=== PATIENT | male | born 1995 | race Caucasian/White ===

== ENCOUNTER 2016-12-27 14:04 | Emergency (ER) | payer OTHER ==
[2016-12-27 14:09] VITALS: TEMP 97.7
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
[2016-12-27 15:45] VITALS: BP 122/78; PULSE 72; RESP 18; O2SAT 98
== END 2016-12-27 15:45 | disposition home or self-care (01) ==
DX: S09.90XA Unspecified injury of head, initial encounter (principal); S09.93XA Unspecified injury of face, initial encounter; Y04.0XXA Assault by unarmed brawl or fight, initial encounter

== ENCOUNTER 2017-07-05 20:47 | Emergency (ER) | payer OTHER ==
--- NOTE | 2017-07-05 23:16 | EDPHY ---
H & P Smoking Status: Never smoked Time Seen by Provider: 07/05/17 22:33 HPI/ROS: CHIEF COMPLAINT: Vomiting, cough HISTORY OF PRESENT ILLNESS: 22-year-old male presents to the emergency department by private vehicle complaining of URI symptoms since yesterday. Patient states that his roommate tested positive for strep and the patient was having a sore throat. He did not think that he had strep throat because he has had a previous tonsillectomy in since having his tonsils removed, he has not had any episodes of strep pharyngitis. Patient states that he feels general myalgias and ongoing dry cough. He states today he was coughing so hard that he noted some blood tinged sputum. He also noted some blood in his vomit. No diarrhea. No melena. No blood in his stool. He had reports no pain in his chest or symptoms of difficulty breathing. No pleuritic chest pain. No recent travel. No abdominal pain. He does not feel nauseous now. He did receive a flu shot. REVIEW OF SYSTEMS: Constitutional: Subjective chills. Eyes: No double or blurry vision. ENT: sore throat. Respiratory: Cough. no shortness of breath. Cardiac: No chest pain. Gastrointestinal: No abdominal pain, vomiting or diarrhea. Genitourinary: No dysuria. Musculoskeletal: No neck or back pain. Skin: No rashes. Neurological: No headache. (Zulay Oliver) Past Medical/Surgical History: Tonsillectomy, orthopedic surgery (Zulay Oliver) Social History: [employer] student from [place], [place] (Zulay Oliver) Physical Exam: General Appearance: Alert, no distress. Afebrile. No apparent distress. No coughing on examination. Eyes: Pupils equal and round. Extraocular motions are all intact. ENT: Mouth: Mucous membranes moist. Mild posterior pharyngeal injection noted without exudate. No uvular swelling or shift. No tonsils present. No anterior cervical lymphadenopathy palpated. Respiratory: No wheezing, rhonchi, or rales, lungs are clear to auscultation. Cardiovascular: Regular rate and rhythm. Gastrointestinal: Abdomen is soft and nontender, no masses, no rebound or guarding, bowel sounds normal. Neurological: Alert and oriented x 3, cranial nerves II through XII grossly intact Skin: Warm and dry, no rashes. Musculoskeletal: Nontender to palpate along the cervical, thoracic or lumbar spine. Neck is supple. Extremities: Full range of motion and no peripheral edema. Psychiatric: Patient is oriented X 3, there is no agitation. (Zulay Oliver) Constitutional: Initial Vital Signs Temperature (C) 36.9 C 07/05/17 20:58 Heart Rate 86 07/05/17 20:58 Respiratory Rate 20 07/05/17 20:58 Blood Pressure 128/75 H 07/05/17 20:58 O2 Sat (%) 95 07/05/17 20:58 O2 Delivery Mode Room Air Allergies/Adverse Reactions: No Known Allergies Allergy (Unverified 07/05/17 20:57) Home Medications: Medication Instructions Recorded NK [No Known Home Meds] 07/05/17 Medical Decision Making ED Course/Re-evaluation: 22-year-old male presents to the emergency department with cough, sore throat and symptoms of vomiting. Clinically I think this patient likely has influenza. I discussed the rationale for not testing for influenza or treating with Tamiflu. He has no history of asthma. He is immunocompetent. He is otherwise healthy. The patient was given option of being treated for strep pharyngitis since his roommate tested positive for this, however the patient requested to be tested for strep it this was positive would take treatment otherwise would await throat culture. The patient does not feel nauseous. He is tolerating p.o. fluids. He is comfortable being discharged home. Rapid strep screen was negative. Patient will call for the results of the throat culture in 48 hr. (Zulay Oliver) PHYSICIAN DOCUMENTATION: The patient was evaluated and managed by the Physician Station [facility]. My co- signature indicates that I have reviewed this chart and I agree with the findings and plan of care as documented. I am the secondary supervising physician. (Lida Linn) Differential Diagnosis: Including but not limited to influenza, viral upper respiratory infection, strep pharyngitis, mononucleosis, tuberculosis (Zulay Oliver) - Data Points Laboratory Results: 07/05/17 07/05/17 Unknown 22:30 Group A Strep Screen NEGATIVE (NEGATIVE) Group A Strep DNA Pending Departure - Departure Disposition: Home, Routine, Self-Care Clinical Impression: Sore throat, Vomiting Condition: Good Instructions: Pharyngitis (ED), Acute Nausea and Vomiting (ED) Additional Instructions: Clear liquids and then slowly advance diet as tolerated. Call [phone] for the results of your throat culture in 48 hr. Referrals: Meena Lancaster MD [Medical Doctor] - 2-3 days, if not improved (Primary care provider electrical contacts adjuster)
[2017-07-05 23:54] VITALS: BP 122/76; PULSE 70; RESP 16; TEMP 98.2; O2SAT 97
== END 2017-07-05 23:52 | disposition home or self-care (01) ==
DX: J02.9 Acute pharyngitis, unspecified (principal); R11.10 Vomiting, unspecified

== ENCOUNTER 2017-12-09 10:20 | Emergency (ER) | payer OTHER ==
[2017-12-09] MEDS ORDERED: ONDANSETRON 4 MG/2 ML VIAL IVP ONE (10:33)
[2017-12-09] MEDS ORDERED: NS 1,000 ML IV ONE (10:33)
[2017-12-09] MEDS ORDERED: KETOROLAC 30 MG/1 ML SDV IVP ONE (10:33)
[2017-12-09] MEDS ORDERED: LORazepam 2 MG/ML INJ IVP ONE (10:33)
--- NOTE | 2017-12-09 10:35 | EDPHY ---
H & P Stated Complaint: abdominal pain starting at 0900 this morning Time Seen by Provider: 12/09/17 10:25 HPI/ROS: CHIEF COMPLAINT: Abdominal pain HISTORY OF PRESENT ILLNESS: The patient is a 22-year-old healthy man who comes to the emergency department complaining of periumbilical abdominal pain. He states that it began at 9:00 a.m. This morning when he woke up. He tried to eat but he feels like it made his pain worse. No fevers. He is nauseous but has not vomited. No diarrhea. No history of abdominal surgery. No recent experienced anything like this before. No testicular pain. No flank pain. No discharge. REVIEW OF SYSTEMS: Constitutional: denies: chills, fever, recent illness, recent injury EENTM: denies: blurred vision, double vision, nose congestion Respiratory: denies: cough, shortness of breath Cardiac: denies: chest pain, irregular heart rate, lightheadedness, palpitations Gastrointestinal/Abdominal: See HPI Genitourinary: denies: dysuria, frequency, hematuria, pain Musculoskeletal: denies: joint pain, muscle pain Skin: denies: lesions, rash, jaundice, bruising Neurological: denies: headache, numbness, paresthesia, tingling, dizziness, weakness Hematologic/Lymphatic: denies: blood clots, easy bleeding, easy bruising Immunologic/allergic: denies: HIV/AIDS, transplant EXAM: GENERAL: Well-appearing, well-nourished and in no acute distress. HEAD: Atraumatic, normocephalic. EYES: Pupils equal round and reactive to light, extraocular movements intact, sclera anicteric, conjunctiva are normal. ENT: TMs normal, nares patent, oropharynx clear without exudates. Moist mucous membranes. NECK: Normal range of motion, supple without lymphadenopathy or JVD. LUNGS: Breath sounds clear to auscultation bilaterally and equal. No wheezes rales or rhonchi. HEART: Regular rate and rhythm without murmurs, rubs or gallops. ABDOMEN: Periumbilical and right lower quadrant tenderness, no guarding or rebound BACK: No CVA tenderness, no spinal tenderness, step-offs or deformities EXTREMITIES: Normal range of motion, no pitting or edema. No clubbing or cyanosis. NEUROLOGICAL: Cranial nerves II through XII grossly intact. Normal speech, normal gait. 5/5 strength, normal movement in all extremities, normal sensation PSYCH: Normal mood, normal affect. SKIN: Warm, dry, normal turgor, no visible rashes or lesions. Source: Patient Exam Limitations: No limitations - Medical/Surgical History Hx Asthma: No Hx Chronic Respiratory Disease: No Hx Diabetes: No Hx Cardiac Disease: No Hx Renal Disease: No Hx Cirrhosis: No Hx Alcoholism: No Hx HIV/AIDS: No Hx Splenectomy or Spleen Trauma: No Other PMH: L femur repaired fx 2011; tonsillectomy - Family History Significant Family History: No pertinent family hx - Social History Smoking Status: Never smoked Alcohol Use: None Constitutional: Initial Vital Signs Temperature (C) 36.6 C 12/09/17 10:22 Heart Rate 58 L 12/09/17 10:22 Respiratory Rate 20 12/09/17 10:22 Blood Pressure 119/84 H 12/09/17 10:22 O2 Sat (%) 95 12/09/17 10:22 O2 Delivery Mode Room Air Allergies/Adverse Reactions: No Known Allergies Allergy (Verified 12/09/17 10:22) Home Medications: Medication Instructions Recorded LORazepam [Ativan 1 mg (RX)] 1 mg PO Q6-8PRN PRN #10 tab 12/09/17 Ondansetron Odt [Zofran Odt 4 mg 4 mg PO Q4 PRN #20 tab 12/09/17 (RX)] Medical Decision Making - Diagnostics Imaging Results: Imaging Impressions Abdomen CT 12/09/17 10:33 Impression: Normal appendix. No source for periumbilical pain identified. Results called and discussed with EVELINA GONZALES, at 12/09/2017 11:39 General information for patients regarding this examination can be found at [email or web address]. If you have questions or comments about this report, please contact me at (hospital) or [phone] (cell). Imaging: Discussed imaging studies w/ lead sprinkler Radiologist ED Course/Re-evaluation: 11:50 a.m. the patient is feeling completely better after Ativan and Toradol. His abdominal exam is benign. We discussed the CT results which are reassuring. We agreed to discharge and have him return in 24-48 hours for recheck. He is happy with this plan and declines further workup or testing. 12:00 p.m. the patient while getting ready for discharge had return of his cramping and pain. We will try treating with Haldol. 1:15 p.m. the patient is feeling much better. He is eager to go home. Differential Diagnosis: Partial list of the Differential diagnosis considered include but were not limited to; constipation, appendicitis, anxiety, gastritis and although unlikely based on the history and physical exam, I also considered biliary disease, obstruction, ischemia, volvulus, kidney stone, urinary tract infection , hernia. I discussed these differential diagnoses and the plan with the patient as well as the usual and expected course. The patient understands that the diagnosis is provisional and that in medicine we are not always correct and that further workup is often warranted. Usual and customary warnings were given. All of the patient's questions were answered. The patient was instructed to return to the emergency department should the symptoms at all worsen or return, otherwise to followup with the physician as we discussed. - Data Points Laboratory Results: Laboratory Results 12/09/17 10:35 12/09/17 10:35 12/09/17 12/09/17 12/09/17 10:47 10:35 10:35 WBC 4.34 10^3/uL 10^3/uL (3.80-9.50) RBC 5.30 10^6/uL 10^6/uL (4.40-6.38) Hgb 16.3 g/dL g/dL (13.7-17.5) Hct 48.5 % % (40.0-51.0) MCV 91.5 fL fL (81.5-99.8) MCH 30.8 pg pg (27.9-34.1) MCHC 33.6 g/dL g/dL (32.4-36.7) RDW 13.1 % % (11.5-15.2) Plt Count 226 10^3/uL 10^3/uL (150-400) MPV 10.5 fL fL (8.7-11.7) Neut % (Auto) 49.6 % % (39.3-74.2) Lymph % (Auto) 41.0 % % (15.0-45.0) [place] % (Auto) 6.9 % % (4.5-13.0) Eos % (Auto) 1.6 % % (0.6-7.6) Baso % (Auto) 0.7 % % (0.3-1.7) Nucleat RBC Rel Count 0.0 % % (0.0-0.2) Absolute Neuts (auto) 2.15 10^3/uL 10^3/uL (1.70-6.50) Absolute Lymphs (auto) 1.78 10^3/uL 10^3/uL (1.00-3.00) Absolute Monos (auto) 0.30 10^3/uL 10^3/uL (0.30-0.80) Absolute Eos (auto) 0.07 10^3/uL 10^3/uL (0.03-0.40) Absolute Basos (auto) 0.03 10^3/uL 10^3/uL (0.02-0.10) Absolute Nucleated RBC 0.00 10^3/uL 10^3/uL (0-0.01) Immature Gran % 0.2 % % (0.0-1.1) Immature Gran # 0.01 10^3/uL 10^3/uL (0.00-0.10) Sodium 138 mEq/L mEq/L (135-145) Potassium 4.4 mEq/L mEq/L (3.3-5.0) Chloride 106 mEq/L mEq/L (97-110) Carbon Dioxide 24 mEq/l mEq/l (22-31) Anion Gap 8 mEq/L mEq/L (8-16) BUN 10 mg/dL mg/dL (7-23) Creatinine 0.8 mg/dL mg/dL (0.7-1.3) Estimated GFR > 60 Glucose 101 mg/dL H mg/dL (70-100) Calcium 9.7 mg/dL mg/dL (8.5-10.4) Total Bilirubin 0.9 mg/dL mg/dL (0.1-1.4) Conjugated Bilirubin 0.3 mg/dL mg/dL (0.0-0.5) Unconjugated Bilirubin 0.6 mg/dL mg/dL (0.0-1.1) AST 20 IU/L IU/L (17-59) ALT 24 IU/L IU/L (21-72) Alkaline Phosphatase 67 IU/L IU/L (38-126) Total Protein 6.8 g/dL g/dL (6.3-8.2) Albumin 4.4 g/dL g/dL (3.5-5.0) Lipase 45 IU/L IU/L (23-300) Urine Color YELLOW Urine Appearance CLEAR Urine pH 5.0 (5.0-7.5) Ur Specific [place] 1.028 (1.002-1.030) Urine Protein NEGATIVE (NEGATIVE) Urine Ketones NEGATIVE (NEGATIVE) Urine Blood NEGATIVE (NEGATIVE) Urine Nitrate NEGATIVE (NEGATIVE) Urine Bilirubin NEGATIVE (NEGATIVE) Urine Urobilinogen NEGATIVE EU EU (0.2-1.0) Ur Leukocyte Esterase NEGATIVE (NEGATIVE) Urine RBC NONE SEEN /hpf /hpf (0-3) Urine WBC 0-1 /hpf /hpf (0-3) Ur Epithelial Cells NONE SEEN /lpf /lpf (NONE-1+) Urine Mucus 2+ /lpf H /lpf (NONE-1+) Urine Glucose NEGATIVE (NEGATIVE) Medications Given: Discontinued Medications Haloperidol Lactate (Haldol Injection) 2.5 mg IVP EDNOW ONE Stop: 12/09/17 12:12 Last Admin: 12/09/17 12:15 Dose: 2.5 mg Sodium Chloride (Ns) 1,000 mls @ 0 mls/hr IV EDNOW ONE; Wide Open PRN Reason: Protocol Stop: 12/09/17 10:34 Last Admin: 12/09/17 10:41 Dose: 1,000 mls Ketorolac Tromethamine (Toradol) 15 mg IVP EDNOW ONE Stop: 12/09/17 10:34 Last Admin: 12/09/17 10:43 Dose: 15 mg Lorazepam (Ativan Injection) 0.5 mg IVP EDNOW ONE Stop: 12/09/17 10:34 Last Admin: 12/09/17 10:42 Dose: 0.5 mg Ondansetron HCl (Zofran) 4 mg IVP EDNOW ONE Stop: 12/09/17 10:34 Last Admin: 12/09/17 10:40 Dose: 4 mg Departure - Departure Disposition: Home, Routine, Self-Care Clinical Impression: Abdominal pain Qualifiers: Abdominal location: generalized Qualified Code(s): R10.84 - Generalized abdominal pain Condition: Fair Instructions: Lorazepam (By mouth), Ondansetron (By mouth), Acute Abdominal Pain (ED) Referrals: NONE *PRIMARY CARE P,. [Primary Care Provider] - As per Instructions ED,PHYSICIAN ONDUTY [Medical Doctor] - 1 day, if not improved Prescriptions: LORazepam [Ativan 1 mg (RX)] 1 mg PO Q6-8PRN PRN #10 tab PRN Reason: *Anxiety/Agitation/Insomnia Ondansetron Odt [Zofran Odt 4 mg (RX)] 4 mg PO Q4 PRN #20 tab PRN Reason: Nausea & Vomiting
[2017-12-09 10:47] LABS: PLATELET COUNT 226 10^3/uL (150-400)
[2017-12-09] MEDS ORDERED: IOPAMIDOL (ISOVUE-300) 100 ML BTL ONE (11:11)
[2017-12-09] MEDS ORDERED: HALOPERIDOL LACT 5 MG/ML INJ IVP ONE (12:11)
[2017-12-09 13:08] VITALS: BP 104/59
== END 2017-12-09 13:18 | disposition home or self-care (01) ==
DX: R10.84 Generalized abdominal pain (principal); E86.9 Volume depletion, unspecified
CPT/HCPCS: 96374; J1630; J1885; J2060; J2405; Q9967